=== PATIENT | female | born 1975 | race Caucasian/White ===

== ENCOUNTER 2017-04-07 09:26 | Day surgery (SDC) | payer MEDICAID ==
[2017-04-03 12:12] VITALS: BMI 33.5
[2017-04-07 10:01] LABS: BASO # 0.01 K/mm3 (0.0-2.0); BASO % 0.2 % (0.0-3.0); EOS # 0.1 (0.0-0.7); EOS % 1.3 % (1.5-5.0); GRAN # 2.88 (1.4-6.5); GRAN % 47.6 % (50.0-68.0); HEMATOCRIT 36.6 % (36.0-48.0); LYMPH # 2.8 (1.2-3.4); LYMPH % 45.6 % (22.0-35.0); MEAN CELL VOLUME 81.3 fl (80.0-105.0); MEAN CORPUSCULAR HEMOGLOBIN 26.4 pg (25.0-35.0); MEAN CORPUSCULAR HGB CONC 32.5 g/dl (31.0-37.0); MEAN PLATELET VOLUME 8.8 fl (7.0-11.0); MONO # 0.3 (0.1-0.6); MONO % 5.3 % (1.0-6.0); RED CELL DISTRIBUTION WIDTH 13.9 % (11.5-14.5); WHITE BLOOD COUNT 6.1 10^3/ul (4.5-11.0)
[2017-04-07 10:10] LABS: BLOOD UREA NITROGEN 16 mg/dL (7-21); CALCIUM 9.2 mg/dL (8.4-10.5); CARBON DIOXIDE 24 mmol/L (21-33); CHLORIDE 105 mmol/L (98-107); GFR AFRICAN-AMERICAN > 60; GLUCOSE,RANDOM 94 mg/dL (70-110); POTASSIUM 4.1 mmol/L (3.6-5.0); SODIUM 142 mmol/L (132-148)
[2017-04-07 10:11] VITALS: TEMP 98.4
[2017-04-07 10:12] LABS: INR 0.98 (0.93-1.08); PARTIAL THROMBOPLASTIN TIME 32.1 Seconds (23.7-30.8)
[2017-04-07] MEDS ORDERED: Midazolam 2 MG/2 ML VIAL ONE (12:17)
[2017-04-07] MEDS ORDERED: Oxycodone/Acetaminophen 5/325 mg Tab PO PRN (13:31)
[2017-04-07] MEDS ORDERED: Sodium Chloride 0.45% 1,000 ML IV SCH (13:45)
[2017-04-07 14:29] VITALS: RESP 20; O2SAT 98
--- NOTE | 2017-04-07 14:41 | US ---
PROCEDURE: Ultrasound-guided left thyroid fine needle aspiration biopsy. CLINICAL HISTORY: Goiter. Previous thyroid surgery in [place]. Multiple large nodules. Dominant 2.3 cm left thyroid nodule. Evaluate for malignancy PHYSICIAN(S): Chris Yan M.D. TECHNIQUE: The relative risks and indications for the procedure were explained to the patient and consent obtained. The patient was placed supine on the stretcher with the neck extended and preliminary sonography of the thyroid performed. This reveal a dominant 2.3 cm hypoechoic nodule in the mid left thyroid.. Multiple smaller nodules are noted bilaterally. The neck was prepped and draped in the usual sterile fashion. Conscious sedation and monitoring were provided throughout the procedure by a nurse. 1% Xylocaine was used to anesthetize the skin and soft tissues at the access site. Three passes with a 22-gauge needle were performed under ultrasound guidance for fine needle aspiration of the 2.3 cm hypoechoic nodule in the left thyroid. The slides were reviewed by pathology and deemed adequate. The patient tolerated the procedure well. IMPRESSION: 1. Ultrasound guided fine needle aspiration of a 2.3 cm hypoechoicnodule in the left thyroid.
[2017-04-07 14:51] VITALS: BP 110/56; PULSE 80
== END 2017-04-07 15:00 | disposition home or self-care (01) ==
LOC: SDS 09:26
PROVIDERS: ATTEND Radiology Vascular & Interventional Radiology
DX: E04.2 Nontoxic multinodular goiter (principal)
CPT/HCPCS: 10022; 36415; 76942; 80048; 84703; 85025; 85610; 85730; 88173; 88305; J2250; J2405; J3010; J7030